=== PATIENT | female | born 1960 | race Caucasian/White ===

== ENCOUNTER 2018-12-18 19:06 | Emergency (ER) | payer BC ==
--- NOTE | 2018-12-18 19:42 | Emergency Department Record ---
History of Present Illness - General Chief complaint: Lower Extremity Pain Stated complaint: MAY HAVE BLOOD CLOT Time Seen by Provider: 12/18/18 19:24 Source: Patient Mode of Arrival: Ambulatory Limitations: No limitations - History of Present Illness Initial comments: pt had a sudden onset of redness and swelling in the back of her legfrom behind her knee to her upper thigh. she says that it is spreading and tender. she has a hx of dvts and bilateral pes. she has no cp or sob MD Complaint: Extremity pain, Extremity swelling Onset/Timin -: Hour(s) Location: Left, Right, Lower Leg History of Same: Yes Severity scale (1-10): 2 Quality: Other Consistency: Constant Improves with: Cold therapy, Elevation Worsens with: Palpation Associated Symptoms: Denies other symptoms - Related Data Home Medications Medication Instructions Recorded Confirmed Last Taken Aripiprazole [Abilify] 2 mg PO DAILY 12/18/18 12/18/18 Unknown Atorvastatin Calcium [Lipitor] 20 mg PO DAILY 12/18/18 12/18/18 Unknown Cholecalciferol (Vitamin D3) 1,000 unit PO DAILY 12/18/18 12/18/18 Unknown [Vitajoy Daily D] Duloxetine HCl [Cymbalta] 90 mg PO DAILY 12/18/18 12/18/18 Unknown Gabapentin [Neurontin] 100 mg PO DAILY 12/18/18 12/18/18 Unknown Lorazepam [Ativan] 0.5 mg PO ASDIR 12/18/18 12/18/18 Unknown Melatonin 5 mg PO QHS 12/18/18 12/18/18 Unknown Multivitamin [One Daily 1 each PO DAILY 12/18/18 12/18/18 Unknown Multivitamin] Propranolol HCl [Propranolol HCl 120 mg PO DAILY 12/18/18 12/18/18 Unknown ER] Ubidecarenone [Co Q-10] 200 mg PO DAILY 12/18/18 12/18/18 Unknown Zolpidem Tartrate [Ambien] 5 mg PO QHS 12/18/18 12/18/18 Unknown Allergies Allergy/AdvReac Type Severity Reaction Status Date / Time No Known Drug Allergies Allergy Verified 12/18/18 19:23 Travel Screening - Travel/Exposure Within Last 30 Days Have you traveled within the last 30 days?: No - Travel/Exposure Within Last Year Have you traveled outside the [place] in the last year?: No - Additonal Travel Details Have you been exposed to anyone with a communicable illness?: No - Travel Symptoms Symptom Screening: None Review of Systems Reviewed: No additional complaints except as noted below Constitutional: Reports: As per HPI. Denies: Chills, Fever, Malaise, Night sweats, Weakness, Weight change Eyes: Reports: As per HPI. Denies: Eye discharge, Eye pain, Photophobia, Vision change ENT: Reports: As per HPI. Denies: Congestion, Dental pain, Ear pain, Epistaxis, Hearing loss, Throat pain Respiratory: Reports: As per HPI. Denies: Cough, Dyspnea, Hemoptysis, Stridor, Wheezes Cardiovascular: Reports: As per HPI. Denies: Arrhythmia, Chest pain, Dyspnea on exertion, Edema, Murmurs, Orthopnea, Palpitations, Paroxysmal nocturnal dyspnea, Rheumatic Fever, Syncope Endocrine: Reports: As per HPI. Denies: Fatigue, Heat or cold intolerance, Polydipsia, Polyuria Gastrointestinal: Reports: As per HPI. Denies: Abdominal pain, Constipation, Diarrhea, Hematemesis, Hematochezia, Melena, Nausea, Vomiting Genitourinary: Reports: As per HPI. Denies: Abnormal menses, Discharge, Dyspareunia, Dysuria, Frequency, Hematuria, Incontinence, Retention, Urgency Musculoskeletal: Reports: As per HPI. Denies: Arthralgia, Back pain, Gout, Joint swelling, Myalgia, Neck pain Skin: Reports: As per HPI. Denies: Bruising, Change in color, Change in hair/nails, Lesions, Pruritus, Rash Neurological: Reports: As per HPI. Denies: Abnormal gait, Confusion, Headache, Numbness, Paresthesias, Seizure, Tingling, Tremors, Vertigo, Weakness Psychiatric: Reports: As per HPI. Denies: Anxiety, Auditory hallucinations, Depression, Homicidal thoughts, Suicidal thoughts, Visual hallucinations Hematological/Lymphatic: Reports: As per HPI, Blood Clots. Denies: Anemia, Easy bleeding, Easy bruising, Swollen glands Past Medical History - SOCIAL HISTORY Smoking Status: Former smoker Alcohol Use: None Drug Use: None - RESPIRATORY Hx Respiratory Disorders: No - CARDIOVASCULAR Hx Cardio Disorders: No - NEURO Hx Neuro Disorders: No - GI Hx GI Disorders: No - Hx Genitourinary Disorders: Yes Comment:: interstem for the bladder - ENDOCRINE Hx Endocrine Disorders: No - MUSCULOSKELETAL Hx Musculoskeletal Disorders: No - PSYCH Hx Psych Problems: Yes Hx Anxiety: Yes Hx Depression: Yes - HEMATOLOGY/ONCOLOGY Hx Hematology/Oncology Disorders: Yes Hx Cancer: Yes (breast) Hx Chemotherapy: Yes (2001) Hx Radiation Therapy: Yes (2001) Family Medical History Any Significant Family History?: No Physical Exam - General General Appearance: Alert, Oriented x3, Cooperative, Mild distress - Head Head exam: Normal inspection - Eye Eye exam: Normal appearance, PERRL, EOMI Pupils: Normal accommodation - ENT ENT exam: Normal exam, Mucous membranes moist, Normal external ear exam, Normal orophraynx Ear exam: Normal external inspection. negative: External canal tenderness Nasal Exam: Normal inspection. negative: Discharge, Sinus tenderness Mouth exam: Normal external inspection, Tongue normal Teeth exam: Normal inspection. negative: Dental caries Throat exam: Normal inspection. negative: Tonsillar erythema, Tonsillar exudate - Neck Neck exam: Normal inspection, Full ROM. negative: Tenderness - Respiratory Respiratory exam: Normal lung sounds bilaterally. negative: Respiratory distress - Cardiovascular Cardiovascular Exam: Regular rate, Normal rhythm, Normal heart sounds - GI/Abdominal GI/Abdominal exam: Soft, Normal bowel sounds. negative: Tenderness - Rectal Rectal exam: Deferred - exam: Deferred - Extremities Extremities exam: Calf tenderness, Full ROM, Normal capillary refill, Tenderness Image of Full Body: 1 - erythema, swelling, tenderness, palpable cord - Back Back exam: Reports: Normal inspection, Full ROM. Denies: Muscle spasm, Rash noted, Tenderness - Neurological Neurological exam: Alert, CN II-XII intact, Normal gait, Oriented X3, Reflexes normal - Psychiatric Psychiatric exam: Normal affect, Normal mood - Skin Skin exam: Dry, Intact, Normal color, Warm Course Vital Signs 12/18/18 19:13 Temperature 98.1 F Pulse Rate 84 Respiratory 18 Rate Blood Pressure 137/87 Pulse Ox 98 - Reevaluation(s) Reevaluation #1: 12/18/18 20:30 d/w dr michel who accepted for doppler Medical Decision Making - Lab Data Result diagrams: 12/18/18 19:30 12/18/18 19:30 Disposition Disposition: Transfer Clinical Impression: DVT (deep venous thrombosis) Qualifiers: DVT location: lower extremity Affected thrombotic vein of extremity: femoral Chronicity: acute Laterality: left Qualified Code(s): I82.412 - Acute embolism and thrombosis of left femoral vein Disposition: Acute Care Hospital Transfer Transfer To: [facility] Reason For Transfer: needs doppler Accepting Physician: dr michel Time Discussed w/Accepting Physician: 20:29 Forms: Patient Portal Access Quality - Quality Measures Quality Measures: N/A - Blood Pressure Screening Does Patient Have Any of the Following: No Blood Pressure Classification: Pre-Hypertensive BP Reading Systolic Measurement: 137 Diastolic Measurement: 87 Screening for High Blood Pressure: < Pre-Hypertensive BP, F/U Documented > [[id number]] Pre-Hypertensive Follow-up Interventions: Follow-up with rescreen every year.
[2018-12-18 19:59] LABS: ABSOLUTE NEUTROPHIL COUNT 3.25; BASO % 0.6 % (0-6); EOS % 5.6 % (0-6); GRAN % 46.9 % (47-80); HEMATOCRIT 41.3 % (35.0-47.0); HEMOGLOBIN 13.2 gm/dl (11.6-16.0); MEAN CELL VOLUME 90.8 fl (81-97); MEAN PLATELET VOLUME 9.5 fl (7.4-10.4); MONO % 8.9 % (0-9); PLATELET COUNT 283 K/uL (130-400); RED BLOOD COUNT 4.55 M/uL (3.80-5.40); WHITE BLOOD COUNT W/O DIFF 6.9 K/uL (4.2-12.2)
[2018-12-18 20:08] LABS: BLOOD UREA NITROGEN 14 mg/dL (6-20); CREATININE 0.9 mg/dL (0.5-0.9); EST GLOMERULAR FILTRATION RATE > 60 mL/min
[2018-12-18 20:10] LABS: GLUCOSE,RANDOM 107 mg/dL (74-109)
== END 2018-12-18 20:42 | disposition short-term general hospital (02) ==
LOC: ER 19:06
DX: I82.4Y2 Acute embolism and thrombosis of unspecified deep veins of left proximal lower extremity (principal); Z87.891 Personal history of nicotine dependence
CPT/HCPCS: 80048; 85025; 85379; 99285